=== PATIENT | female | born 1975 | race Hispanic/Latino ===

== ENCOUNTER → 2018-08-04 16:56 | Outpatient (CLI) | payer OTHER, SELFPAY ==
[2018-08-04 18:46] LABS: Alanine Aminotransferase 51 IU/L (9-52); Albumin 4.2 g/dL (3.5-5.0); Albumin Globulin Ratio 1.4 (1.0-2.8); Alkaline Phosphatase 46 U/L (38-126); Aspartate Aminotransferase 31 IU/L (14-36); BUN Creatinine Ratio 11.4 (6-22); Bilirubin Total 0.4 mg/dL (0.2-1.3); Blood Urea Nitrogen 8 mg/dL (7-17); Calcium 9.5 mg/dL (8.4-10.2); Carbon Dioxide 28 mmol/L (22-32); Chloride 101 mmol/L (98-107); Estimated Glomerular Filt Rate > 60.0 mL/min (>60); Globulin 3.1 g/dL (1.7-4.1); Glucose 87 mg/dL (70-100); HEMOLYSIS < 15 (0-50); Potassium 4.4 mmol/L (3.4-5.1); Sodium 139 mmol/L (137-145); Total Protein 7.3 g/dL (6.3-8.2)
[2018-08-04 19:01] LABS: Free T4, Direct Thyroxine 1.81 ng/dL (0.78-2.19)
[2018-08-04 19:02] LABS: Vitamin D 25 Hydroxy (D3) 49.7 ng/mL (30.0-100.0)
[2018-08-04 19:15] LABS: Thyroid Stimulating Hormone 0.36 uIU/mL (0.47-4.68)
[2018-08-06 19:13] LABS: Triiodothyronine T3 Total 106 ng/dL (76-181)
== END ==
PROVIDERS: PCP Internal Medicine; Visit Provider Internal Medicine
DX: M62.831 Muscle spasm of calf (principal); E03.9 Hypothyroidism, unspecified
CPT/HCPCS: 36415; 80053; 82306; 83735; 84439; 84443; 84480

== ENCOUNTER → 2019-03-16 17:20 | Outpatient (CLI) | payer OTHER, SELFPAY ==
--- NOTE | 2019-03-16 17:21 | DI.MG.S_ITS ---
BILATERAL DIGITAL SCREENING MAMMOGRAM 3D/2D WITH CAD: 03/16/2019 CLINICAL: Routine screening. Comparison is made to exams dated: 08/05/2015 mammogram and 07/09/2017 mammogram - [facility]. The tissue of both breasts is heterogeneously dense. This may lower the sensitivity of mammography. Current study was also evaluated with a Computer Aided Detection (CAD) system. There is an oval asymmetry in the right breast posterior depth superior region seen on the mediolateral oblique view only. There also is an irregular asymmetry in the right breast anterior depth inferior region seen on the mediolateral oblique view only. There is an irregular asymmetry in the left breast posterior depth lateral region seen on the craniocaudal view only. No other significant masses or calcifications are seen in either breast. IMPRESSION: INCOMPLETE: NEEDS ADDITIONAL IMAGING EVALUATION The oval asymmetry in the right breast posterior depth superior region seen on the mediolateral oblique view only is indeterminate. Additional views with possible ultrasound are recommended. The irregular asymmetry in the right breast anterior depth inferior region seen on the mediolateral oblique view only is indeterminate. Additional views with possible ultrasound are recommended. The irregular asymmetry in the left breast posterior depth lateral region seen on the craniocaudal view only is indeterminate. Additional views with possible ultrasound are recommended. This exam was interpreted at Station ID: [id number]. NOTE: For mammograms, a report in lay terms will be sent to the patient. Approximately 15% of breast malignancies will not be visualized mammographically. In the management of a palpable breast mass, a negative mammogram must not discourage biopsy of a clinically suspicious lesion. Electronically Signed By: Melo Austin M.D. ecl/:03/17/2019 09:40:30 letter sent: Additional Imaging Needed ACR BI-RADS Category 0: Incomplete 3340F
== END ==
PROVIDERS: PCP Internal Medicine; Visit Provider Internal Medicine
DX: Z12.31 Encounter for screening mammogram for malignant neoplasm of breast (principal)
CPT/HCPCS: 77063; 77067

== ENCOUNTER → 2019-04-04 14:11 | Outpatient (CLI) | payer OTHER, SELFPAY ==
--- NOTE | 2019-04-04 | DI.MG.S_ITS ---
BILATERAL DIGITAL DIAGNOSTIC MAMMOGRAM 3D/2D WITH ADDITIONAL VIEWS: 04/04/2019 CLINICAL: Additional evaluation requested from prior study. Comparison is made to exams dated: [facility] [facility], 07/09/2017 mammogram, and 08/05/2015 mammogram [facility]. The tissue of both breasts is heterogeneously dense. This may lower the sensitivity of mammography. There oval asymmetry in the right breast posterior depth superior region seen on the mediolateral oblique view has a reniform appearance on additional views and is consistent with a normal appearing lymph node. The irregular asymmetry in the right breast anterior depth inferior region seen on the mediolateral oblique view only is not seen in additional views. The irregular asymmetry in the left breast posterior depth lateral region seen on the craniocaudal view only is not seen in additional views. No other significant masses or calcifications are seen in either breast. IMPRESSION: The bilateral asymmetries seen on the screening mammogram likely respresent superimposed fibroglandular tissue and are benign. The asymmetry in the right superior posterior breast is consistent with a normal appearing lymph node and is benign. There is no mammographic evidence of malignancy. A 1 year screening mammogram is recommended. This exam was interpreted at Station ID: [id number]. NOTE: For mammograms, a report in lay terms will be sent to the patient. Approximately 15% of breast malignancies will not be visualized mammographically. In the management of a palpable breast mass, a negative mammogram must not discourage biopsy of a clinically suspicious lesion. Electronically Signed By: Claire Matthews M.D. lk/:04/04/2019 14:59:14 letter sent: Normal Exam ACR BI-RADS Category 2: Benign Finding(s) 3342F
== END ==
PROVIDERS: PCP Internal Medicine; Visit Provider Internal Medicine
DX: R92.8 Other abnormal and inconclusive findings on diagnostic imaging of breast (principal); N64.89 Other specified disorders of breast
CPT/HCPCS: 77066; G0279

== ENCOUNTER → 2019-07-06 17:38 | Outpatient (CLI) | payer BC, SELFPAY | PROVIDERS: PCP Internal Medicine; Visit Provider Physician Assistant | DX: L80 Vitiligo (principal); L81.1 Chloasma; L43.8 Other lichen planus ==

== ENCOUNTER → 2019-07-07 16:07 | Outpatient (CLI) | payer BC, SELFPAY ==
[2019-07-07 17:22] LABS: Add Manual Diff / Slide Review NO; Basophils Absolute Auto 0 /uL (0-100); Basophils Percent Auto 0.6 % (0-2); Eosinophils Absolute Auto 500 /uL (0-450); Eosinophils Percent Auto 6.2 % (2-4); Hemoglobin 14.6 g/dL (12.0-16.0); Lymphocytes Absolute Auto 2300 /uL (1100-4500); Lymphocytes Percent Auto 30.6 % (25-40); Mean Corpuscular Hemoglobin 30.6 PG (26-34); Mean Corpuscular Volume 89.9 fL (80-100); Monocytes Absolute Auto 500 /uL (0-900); Monocytes Percent Auto 6.9 % (3-14); Neutrophils Absolute Auto 4100 /uL (1500-7000); Neutrophils Percent Auto 55.7 % (50-75); Platelet Count 258 X10^3/uL (150-400); Red Blood Cell Count 4.78 X10^6/uL (4.0-5.2); Red Cell Distribution Width 13.5 % (11.6-14.8); White Blood Cell Count 7.4 X10^3/uL (4.5-11.0)
[2019-07-07 17:35] LABS: Alanine Aminotransferase 32 IU/L (<35); Albumin 4.9 g/dL (3.5-5.0); Albumin Globulin Ratio 1.5 (1.0-2.8); Alkaline Phosphatase 59 U/L (38-126); Aspartate Aminotransferase 36 IU/L (14-36); Bilirubin Total 0.7 mg/dL (0.2-1.3); Blood Urea Nitrogen 14 mg/dL (7-17); Calcium 9.6 mg/dL (8.4-10.2); Carbon Dioxide 26 mmol/L (22-32); Chloride 101 mmol/L (98-107); Estimated Glomerular Filt Rate > 60.0 mL/min (>60); Globulin 3.3 g/dL (1.7-4.1); Glucose 88 mg/dL (70-100); HEMOLYSIS < 15 (0-50); Potassium 3.8 mmol/L (3.4-5.1); Sodium 140 mmol/L (137-145); Total Protein 8.2 g/dL (6.3-8.2)
[2019-07-07 18:06] LABS: Thyroid Stimulating Hormone 0.32 uIU/mL (0.47-4.68)
[2019-07-07 18:25] LABS: Vitamin B12 614 pg/mL (239-931)
[2019-07-09 19:43] LABS: DNA (DS) Antibody 2 IU/mL
[2019-07-10 08:56] LABS: ANA Screen, IFA NEGATIVE (NEGATIVE)
[2019-07-11 15:56] LABS: Triiodothyronine T3 Total 101 ng/dL (76-181)
== END ==
PROVIDERS: PCP Internal Medicine; Visit Provider Physician Assistant
DX: L80 Vitiligo (principal); L81.1 Chloasma; L43.8 Other lichen planus
CPT/HCPCS: 36415; 80053; 82607; 84436; 84443; 84480; 85025; 86038; 86225; 86235; 86255

== ENCOUNTER → 2019-11-16 14:27 | Outpatient (CLI) | payer BC, SELFPAY ==
[2019-11-16 15:56] LABS: Free T4, Direct Thyroxine 1.74 ng/dL (0.78-2.19)
[2019-11-16 16:10] LABS: Thyroid Stimulating Hormone 0.15 uIU/mL (0.47-4.68)
[2019-11-17 07:08] LABS: Triiodothyronine T3 Total 75 ng/dL (71-180)
== END ==
PROVIDERS: PCP Internal Medicine; Referring Provider Internal Medicine; Visit Provider Internal Medicine
DX: E03.9 Hypothyroidism, unspecified (principal)
CPT/HCPCS: 36415; 84439; 84443; 84480

== ENCOUNTER → 2020-02-01 07:59 | Outpatient (CLI) | payer OTHER, SELFPAY ==
--- NOTE | 2020-02-01 08:21 | DI.ECHO.S_ITS ---
Version: 1 Study ID: [id number] Name: MALIK MAC Study Date: 02/01/2020, 8: 21 AM : 1975 BP: 122 / 78 mmHg Gender: Female Height: 65 in Age: 44 Years Weight: 156 lb BSA: 1.78 m?? Ordering: JESUS CASEY Referring: JESUS CASEY Clinician: Tenisha Henley Reason For Study: CHEST PAIN History: Summary Statements Normal sinsu rhythm. Normal LV size, wall thickness, wall motion and LV systolic function. EF is 60-65%. Normal chamber sizes. No valvular abnormalities. No prior study available for comparison. Procedure: A two-dimensional transthoracic echocardiogram with color flow and Doppler was performed. The study quality was technically adequate. There is no prior echocardiogram noted for this patient. The patient was in sinus rhythm with heart rates between 60-67 bpm during the exam. Left Ventricle: Diastolic parameters suggest probable normal left ventricular diastolic function and normal filling pressures. The ejection fraction is estimated to be 60-65%. Left ventricular global longitudinal strain average is -19.9%. The left ventricle is normal in size and wall thickness. Right Ventricle: The right ventricle is normal in size and function. Atria: There is no Doppler evidence for an interatrial shunt. Both atria are normal in size. Mitral Valve: There is trace mitral regurgitation. The mitral valve is normal in structure and function. Aortic Valve: No aortic regurgitation is present. There is no aortic valve stenosis. The aortic valve is trileaflet. The aortic valve opens well. Tricuspid Valve: There is mild tricuspid regurgitation. The right ventricular systolic pressure is estimated to be at least 19 mmHg based on an estimated right atrial pressure of 3 mm Hg. The tricuspid valve is normal in structure and function. Pulmonic Valve: There is no pulmonic valvular regurgitation. The pulmonic valve is not well seen, but is grossly normal. Great Vessels: The dimensions of the ascending aorta are normal. The aortic root is normal size. The IVC is of normal diameter and collapses greater than 50% with a sniff. This suggests a low right atrial pressure of 3 mm Hg. Pericardium/ Pleura: There is no pericardial effusion. There is no pleural effusion. 2D and M-Mode Measurements and Calculations LVIDd: 3.9 cm LVOT diam: 1.97 cm LVIDs: 2.8 cm Ao root diam: 3.3 cm IVSd: 0.96 cm asc Aorta Diam: 3.2 cm LVPWd: 0.80 cm Ao Arch Diam (Prox Trans): 2.6 cm LV navarro. diameter/BSA (cm/m^2): 2.22 LV sys. diameter/BSA (cm/m^2): 1.56 EPSS: 0.58 cm RVD1 (basal): 2.9 cm IVC diam: 1.74 cm TAPSE: 2.26 cm LA A4 area: 12.8 cm?? RA area: 12.9 cm?? LA A2 area: 16.4 cm?? RA long axis: 4.3 cm LA length (vol): 4.5 cm RA vol: 32.9 ml LA vol: 39.3 ml RA : 18.5 ml/m?? LA vol index: 22.1 ml/m?? Doppler Measurements and Calculations Ao V2 max: 107.4 cm/sec LVOT Max Jr: 104.7 cm/sec Ao V2 mean: 77.9 cm/sec LV V1 max P.4 mmHg Ao V2 VTI: 23.7 cm LV V1 VTI: 20.1 cm Ao max P.6 mmHg Ao mean P.7 mmHg KIMBERLEE(I,D): 2.6 cm?? KIMBERLEE(V,D): 3.0 cm?? KIMBERLEE indexed to BSA (cm^2/m^2): 1.46 sev ratio: 0.85 MV E max jr: 76.6 cm/sec MV dec time: 0.15 sec MV A max jr: 51.2 cm/sec MV E/A: 1.50 Med Peak E' Jr: 11.0 cm/sec Lat Peak E' Jr: 12.8 cm/sec E/e' average: 6.5 TR max jr: 203.8 cm/sec PA V2 max: 60.5 cm/sec TR max P.6 mmHg PA mean P.77 mmHg Electronically signed by: Kaylynn Alas M.D. 02/02/2020, 6: 33 AM
== END ==
PROVIDERS: PCP Internal Medicine; Referring Provider Internal Medicine; Visit Provider Internal Medicine
DX: I07.1 Rheumatic tricuspid insufficiency (principal); R07.89 Other chest pain; I30.9 Acute pericarditis, unspecified
CPT/HCPCS: 93306

== ENCOUNTER → 2021-01-11 14:12 | Outpatient (CLI) | payer BC, SELFPAY ==
--- NOTE | 2021-01-11 14:13 | DI.MG.S_ITS ---
BILATERAL DIGITAL SCREENING MAMMOGRAM 3D/2D WITH CAD: 01/11/2021 CLINICAL: Routine screening. Comparison is made to exams dated: 04/04/2019 mammogram, 03/16/2019 mammogram - [facility], and 07/09/2017 mammogram - [facility]. The tissue of both breasts is heterogeneously dense. This may lower the sensitivity of mammography. Current study was also evaluated with a Computer Aided Detection (CAD) system. No significant masses, calcifications, or other findings are seen in either breast. There has been no significant interval change. IMPRESSION: NEGATIVE There is no mammographic evidence of malignancy. A 1 year screening mammogram is recommended. This exam was interpreted at Station ID: [id number]. NOTE: For mammograms, a report in lay terms will be sent to the patient. Approximately 15% of breast malignancies will not be visualized mammographically. In the management of a palpable breast mass, a negative mammogram must not discourage biopsy of a clinically suspicious lesion. Electronically Signed By: Aubrey parada/taylor:01/14/2021 08:03:05 letter sent: Normal Exam ACR BI-RADS Category 1: Negative 3341F
== END ==
PROVIDERS: PCP Student in an Organized Health Care Education/Training Program; Referring Provider Student in an Organized Health Care Education/Training Program; Visit Provider Student in an Organized Health Care Education/Training Program
DX: Z12.31 Encounter for screening mammogram for malignant neoplasm of breast (principal)
CPT/HCPCS: 77063; 77067

== ENCOUNTER → 2022-01-13 07:50 | Outpatient (CLI) | payer BC, SELFPAY ==
--- NOTE | 2022-01-13 | DI.MG.S_ITS ---
BILATERAL DIGITAL SCREENING MAMMOGRAM 3D/2D WITH CAD: 01/13/2022 CLINICAL: Routine screening. Comparison is made to exams dated: 01/11/2021 mammogram, 03/16/2019 mammogram - [facility], 07/09/2017 mammogram [facility], and 04/04/2019 mammogram - [facility]. The tissue of both breasts is heterogeneously dense. This may lower the sensitivity of mammography. Current study was also evaluated with a Computer Aided Detection (CAD) system. No significant masses, calcifications, or other findings are seen in either breast. There has been no significant interval change. IMPRESSION: NEGATIVE There is no mammographic evidence of malignancy. A 1 year screening mammogram is recommended. Based on the Tyrer Cuzick model (a risk assessment model) the patient's lifetime risk is 11.2% and her 10 year risk is 2.3%. According to the ACR, ACS, and NCCN guidelines, an annual breast MRI exam along with mammogram is recommended if the patient's lifetime risk is 20% or greater. This exam was interpreted at Station ID: [id number]. NOTE: For mammograms, a report in lay terms will be sent to the patient. Approximately 15% of breast malignancies will not be visualized mammographically. In the management of a palpable breast mass, a negative mammogram must not discourage biopsy of a clinically suspicious lesion. Electronically Signed By: Baron harrison/taylor:01/13/2022 10:10:53 letter sent: Normal Exam ACR BI-RADS Category 1: Negative 3341F
== END ==
PROVIDERS: PCP Family Medicine; Referring Provider Family Medicine; Visit Provider Family Medicine
DX: Z12.31 Encounter for screening mammogram for malignant neoplasm of breast (principal)
CPT/HCPCS: 77063; 77067

== ENCOUNTER 2022-01-29 12:07 | Outpatient (CLI) | payer BC, SELFPAY | END 2022-02-02 14:00 | disposition home or self-care (01) | LOC: PHYS 12:08 | PROVIDERS: PCP Family Medicine; Referring Provider Student in an Organized Health Care Education/Training Program; Visit Provider Student in an Organized Health Care Education/Training Program | DX: M79.604 Pain in right leg (principal) | CPT/HCPCS: 95886; 95909 ==

== ENCOUNTER → 2023-01-14 16:18 | Outpatient (CLI) | payer BC, SELFPAY ==
--- NOTE | 2023-01-14 16:19 | DI.MG.S_ITS ---
BILATERAL DIGITAL SCREENING MAMMOGRAM 3D/2D WITH CAD: 01/14/2023 CLINICAL: Routine screening. Comparison is made to exams dated: 01/13/2022 mammogram, 01/11/2021 mammogram, 03/16/2019 mammogram - [facility], and 07/09/2017 mammogram - [facility]. Both breasts are heterogeneously dense, which may obscure small masses (category c / 51-75% glandular tissue). Current study was also evaluated with a Computer Aided Detection (CAD) system. No significant masses, calcifications, or other findings are seen in either breast. There has been no significant interval change. IMPRESSION: NEGATIVE There is no mammographic evidence of malignancy. A 1 year screening mammogram is recommended. Based on the Tyrer Cuzick model (a risk assessment model) the patient's lifetime risk is 11.3% and her 10 year risk is 2.4%. According to the ACR, ACS, and NCCN guidelines, an annual breast MRI exam along with mammogram is recommended if the patient's lifetime risk is 20% or greater. This exam was interpreted at Station ID: [id number]. NOTE: For mammograms, a report in lay terms will be sent to the patient. Approximately 15% of breast malignancies will not be visualized mammographically. In the management of a palpable breast mass, a negative mammogram must not discourage biopsy of a clinically suspicious lesion. Electronically Signed By: Baron harrison/taylor:01/15/2023 10:12:59 letter sent: Normal Exam ACR BI-RADS Category 1: Negative 3341F
== END ==
PROVIDERS: PCP Family Medicine; Referring Provider Registered Nurse; Visit Provider Registered Nurse
DX: Z12.31 Encounter for screening mammogram for malignant neoplasm of breast (principal)
CPT/HCPCS: 77063; 77067

== ENCOUNTER → 2023-02-04 07:51 | Outpatient (CLI) | payer BC, SELFPAY ==
--- NOTE | 2023-02-04 | DI.NM.S_ITS ---
PROCEDURE: NM EXERCISE TREADMILL NON NUC COMPARISON: None. INDICATIONS: Syncope and collapse FINDINGS: The patient exercised for 10 minutes and 41 seconds reaching 106% of maximum predicted heart rate. Appropriate BP response to exercise. No angina, no ST changes, and no ectopy during exercise or recovery. Good exercise tolerance (12.8METs, SALLY -32%). IMPRESSION: Low risk, normal treadmill ECG only stress test with good exercise tolerance. Dictated by: Muna Gomez MD on 02/05/2023 at 13:04 Approved by: Muna Gomez MD on 02/05/2023 at 13:06
--- NOTE | 2023-02-04 | DI.ECHO.S_ITS ---
[facility] +---------+ : : [address] : [place] [address] : : : : [id number] : : : : Phone: [phone]+ Echocardiogram Report + + :Name: MALIK MAC Study Date: 02/04/2023 Height: 65 in : :[facility] ReadingLocation: Weight: 150 lb : : Gender: Female BSA: 1.8 m2 : :: 1975 Age: 47 yrs BP: 113/81 mmHg: :Reason For Study: SYNCOPE AND COLLAPSE : :Ordering Physician: ANU, : :TEJAS Performed By: Tenisha Henley : :Referring: TEJAS BRENNAN : + + Interpretation Summary The ejection fraction is estimated to be 60-65%. Diastolic parameters suggest probable normal left ventricular diastolic function and normal filling pressures. The right ventricle is normal in size and function. No significant valvular abnormalities. Pulmonary artery pressures cannot be estimated because of the lack of a measurable TR jet velocity. Procedure: A two-dimensional transthoracic echocardiogram with color flow and Doppler was performed. The study quality was technically adequate. Comparison is made with the echocardiogram of 02/01/2020. The patient was in sinus bradycardia with heart rates between 54-67 bpm during the exam. Left Ventricle: The left ventricle is normal in size and wall thickness. The ejection fraction is estimated to be 60-65%. Diastolic parameters suggest probable normal left ventricular diastolic function and normal filling pressures. Right Ventricle: The right ventricle is normal in size and function. Atria: The left atrial size is normal. Right atrial size is normal. There is no Doppler evidence for an interatrial shunt. Mitral Valve: The mitral valve is normal in structure and function. There is trace mitral regurgitation. Aortic Valve: The aortic valve is not well visualized. There is no aortic valve stenosis. No aortic regurgitation is present. Tricuspid Valve: The tricuspid valve is normal in structure and function. There is trace tricuspid regurgitation. Pulmonary artery pressures cannot be estimated because of the lack of a measurable TR jet velocity. Pulmonic Valve: The pulmonic valve leaflets are thin and pliable; valve motion is normal. There is trace pulmonic regurgitation. Great Vessels: The aortic root is normal size. The ascending aorta could not be visualized. The IVC is of normal diameter and collapses greater than 50% with a sniff. This suggests a low right atrial pressure of 3 mm Hg. Pericardium/ Pleura There is no pericardial effusion. There is no pleural effusion. MMode/2D Measurements & Calculations LVIDd: 4.5 cm LVOT diam: 1.9 cm LVIDs: 2.9 cm Ao root diam: 3.2 cm FS: 35.2 % Ao Arch Diam (Prox Trans): 2.5 cm EPSS: 0.26 cm IVSd: 0.79 cm LVPWd: 0.69 cm LV navarro. diameter/BSA (cm/m^2): 2.6 LV sys. diameter/BSA (cm/m^2): 1.7 LA A2 area: 16.2 cm2 RA long axis: 4.4 cm LA A4 area: 11.9 cm2 RA area: 11.9 cm2 LA length (vol): 4.9 cm RA vol: 27.2 ml LA vol: 33.6 ml RA : 15.5 ml/m2 LA vol index: 19.2 ml/m2 IVC diam: 1.8 cm RVD1 (basal): 3.3 cm RVD2 (mid): 2.3 cm TAPSE: 2.4 cm Doppler Measurements & Calculations Ao V2 max: 127.0 cm/sec LVOT Max Jr: 81.9 cm/sec Ao V2 mean: 89.8 cm/sec LV V1 max P.7 mmHg Ao max P.5 mmHg LV V1 VTI: 17.7 cm Ao mean P.6 mmHg KIMBERLEE(I,D): 1.9 cm2 Ao V2 VTI: 26.7 cm KIMBERLEE(V,D): 1.8 cm2 sev ratio: 0.67 KIMBERLEE indexed to BSA (cm^2/m^2): 1.1 MV E max jr: 80.9 cm/sec PA V2 max: 73.9 cm/sec MV A max jr: 44.7 cm/sec PA V2 mean: 57.4 cm/sec MV E/A: 1.8 PA mean P.4 mmHg Med Peak E' Jr: 10.8 cm/sec PA pr(Accel): 25.9 mmHg E/E' med: 7.5 Lat Peak E' Jr: 14.0 cm/sec E/E' lat: 5.8 E/e' average: 6.6 MV dec time: 0.27 sec SV(LVOT): 49.9 ml Reading Physician:06:51 PM
== END ==
PROVIDERS: PCP Registered Nurse; Referring Provider Registered Nurse; Visit Provider Registered Nurse
DX: R55 Syncope and collapse (principal)
CPT/HCPCS: 93017; 93306

== ENCOUNTER → 2024-01-18 16:40 | Outpatient (CLI) | payer BC, SELFPAY ==
--- NOTE | 2024-01-18 | DI.US.S_ITS ---
PROCEDURE: US PELVIC COMPLETE INDICATIONS: IUD STRINGS NOT VISUALIZED TECHNIQUE: Real-time scanning was performed of the pelvic organs, with image documentation. Additional endovaginal scanning was necessary due to incomplete visualization of the adnexal and endometrial structures by transabdominal scanning. COMPARISON: [facility], US, US PELVIC COMPLETE, 04/05/2020, 15:36. FINDINGS: Uterus: 9.9 x 4.1 x 5.9 cm. Endometrium is 3-4 mm. IUD is within the endometrial body Small right posterior intramural measures 8 mm Ovaries: Right ovary measures 12 cc. Small follicular cysts are seen measuring up to 2 and 1 5 cm. Nonenlarged left ovary. Other: No pathologic free fluid. IMPRESSION: IUD is seen in the endometrial body small intramural posterior fibroid Right ovarian follicular cysts. Dictated by: Hunter Vergara M.D. on 01/19/2024 at 9:33 Approved by: Hutner Vergara M.D. on 01/19/2024 at 9:36
== END ==
PROVIDERS: PCP Registered Nurse; Referring Provider Registered Nurse; Visit Provider Registered Nurse
DX: D25.1 Intramural leiomyoma of uterus (principal); N83.01 Follicular cyst of right ovary; Z97.5 Presence of (intrauterine) contraceptive device
CPT/HCPCS: 76856

== ENCOUNTER → 2024-01-21 17:41 | Outpatient (CLI) | payer BC, SELFPAY ==
--- NOTE | 2024-01-21 17:41 | DI.MG.S_ITS ---
BILATERAL DIGITAL SCREENING MAMMOGRAM 3D/2D WITH CAD: 01/21/2024 CLINICAL: Routine screening. Comparison is made to exams dated: 01/14/2023 mammogram, 01/13/2022 mammogram, and 01/11/2021 mammogram - [facility]. Both breasts are heterogeneously dense, which may obscure small masses (category c / 51-75% glandular tissue). Current study was also evaluated with a Computer Aided Detection (CAD) system. No significant masses, calcifications, or other findings are seen in either breast. There has been no significant interval change. IMPRESSION: NEGATIVE There is no mammographic evidence of malignancy. A 1 year screening mammogram is recommended. Based on the Tyrer Cuzick model (a risk assessment model) the patient's lifetime risk is 11.3% and her 10 year risk is 2.5%. According to the ACR, ACS, and NCCN guidelines, an annual breast MRI exam along with mammogram is recommended if the patient's lifetime risk is 20% or greater. This exam was interpreted at Station ID: [id number]. NOTE: For mammograms, a report in lay terms will be sent to the patient. Approximately 15% of breast malignancies will not be visualized mammographically. In the management of a palpable breast mass, a negative mammogram must not discourage biopsy of a clinically suspicious lesion. Electronically Signed By: Aubrey parada/taylor:01/24/2024 07:05:00 letter sent: Normal Exam ACR BI-RADS Category 1: Negative 3341F
== END ==
LOC: MAMMO 17:41
PROVIDERS: PCP Registered Nurse; Referring Provider Registered Nurse; Visit Provider Registered Nurse
DX: Z12.31 Encounter for screening mammogram for malignant neoplasm of breast (principal); R92.333 Mammographic heterogeneous density, bilateral breasts
CPT/HCPCS: 77063; 77067

== ENCOUNTER 2024-06-01 12:14 | Emergency (ER) | payer BC, SELFPAY ==
[2024-06-01 12:15] VITALS: BP 143/81; PULSE 64; RESP 16; TEMP 36.6; O2SAT 99; BMI 26.5
--- NOTE | 2024-06-01 12:31 | DI.RAD.S_ITS ---
PROCEDURE: XR FINGER LT MIN 2V INDICATIONS: middle finger in car door TECHNIQUE: AP hand, 2 views of the 3rd finger(s) acquired. COMPARISON: None. FINDINGS: Bones: No fractures or dislocations. No suspicious bony lesions. Soft tissues: No suspicious soft tissue calcifications. IMPRESSION: No acute bony abnormality. Dictated by: Peyman Cifuentes M.D. on 06/01/2024 at 13:17 Approved by: Peyman Cifuentes M.D. on 06/01/2024 at 13:18
[2024-06-01] MEDS: IBUPROFEN 400 MG TABLET PO (12:47)
[2024-06-01] MEDS: ACETAMINOPHEN 325 MG TABLET PO (12:49)
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
[2024-06-01] MEDS: BACITRACIN OINT 0.9 GM PCKT 1 APPLIC TOP (13:54)
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
[2024-06-01] MEDS: cephALEXin 250 MG CAPSULE 500 MG PO (14:16)
[2024-06-01 14:27] VITALS: BP 118/80; PULSE 60; RESP 18; O2SAT 100
== END 2024-06-01 14:29 | disposition home or self-care (01) ==
PROVIDERS: Emergency Provider Physician Assistant; PCP Registered Nurse
DX: S61.313A Laceration without foreign body of left middle finger with damage to nail, initial encounter (principal); R55 Syncope and collapse; S60.10XA Contusion of unspecified finger with damage to nail, initial encounter; W23.0XXA Caught, crushed, jammed, or pinched between moving objects, initial encounter
CPT/HCPCS: 11730; 12001; 73140; 99283; 99284

== ENCOUNTER 2024-08-29 07:43 | Day surgery (SDC) | payer BC, SELFPAY ==
[2024-08-29 08:12] VITALS: BP 110/79; PULSE 65; RESP 14; TEMP 36.9; O2SAT 98
[2024-08-29] MEDS: LACTATED RINGERS 1,000 ML 42 ML IV (08:25)
--- NOTE | 2024-08-29 08:28 | PM.HP.IH.1 ---
History of Present Illness History of Present Illness Date Patient Seen: 08/29/24 Time Patient Seen: 08:28 [place] [facility] [place]: 48-year-old female, maternal aunt with a history of colon cancer, in her usual state of health presents for screening colonoscopy. [facility] Medical History (Updated 08/29/24 @ 08:29 by Ethan Rogers MD) Colon stricture Surgical History Previous section H/O thyroidectomy Social History Smoking Status: Never smoker alcohol intake: current Meds Home Medications and Allergies Home Medications Medication Instructions Recorded Confirmed Type levothyroxine 125 mcg tablet 125 mcg PO DAILY 02/13/20 08/29/24 History Allergies Allergy/AdvReac Type Severity Reaction Status Date / Time Sulfa (Sulfonamide AdvReac Rash Verified 08/29/24 07:57 Antibiotics) Review of Systems Review of Systems ROS: Yes All systems reviewed with the patient and are negative except as otherwise documented Exam Vital Signs (past 8 hours): - 08/29/24 08:12 Temperature 98.5 F Pulse Rate 65 Respiratory Rate 14 Blood Pressure 110/79 Pulse Oximetry 98 Oxygen Delivery Method Room Air Oxygen Delivery Method Room Air Narrative Exam Narrative: Gen: NAD, sitting comfortably in bed, appears well HEENT: Sclera are anicteric, head is normocephalic and atraumatic, trachea is midline. CV: RRR, no JVD Resp: clear to auscultation bilaterally, equal chest wall movement bilaterally Abd: soft, nontender, normoactive bowel sounds Ext: no edema, full range of motion Neuro: Cranial nerves II-XII grossly intact, no focal deficits Skin: No erythema or ecchymosis Assessment & Plan Assessment and plan (1) Colon stricture: Status: Acute Assessment & Plan narrative: Patient presents for colonoscopy Risks, benefits, alternatives to colonoscopy explained, including but not limited to bowel perforation or other serious complication requiring surgery at less than 1 in 5000 colonoscopies, abdominal pain, cramping or bleeding and less than 1% of colonoscopies, and the chances that we find a diagnosis that would require further intervention of about 2%. Patient agrees to proceed. Time-Based Coding :: [TOTAL MINUTES] spent with patient and on the chart (including review of chart, obtaining history, exam, reviewing outside data, placing orders, documenting exam and treatment plan, and counseling patient) on [DATE]. PROFEE Airbrush Artist Technical Document charge(s): No
--- NOTE | 2024-08-29 08:48 | P.OP.COLON_ITS ---
Operative Date/Time/Diagnoses Date of procedure: 08/29/24 Time of procedure: 08:49 Pre-op diagnosis: Colon screening Post-op diagnosis: same Procedure & Clinicians Study performed: Colonoscopy Same procedure as scheduled: Yes Indications: Colon screening Surgeon: Ethan Rogers Procedure Notes SCOAP/Timeout: Performed Procedure in detail: Time-out was performed. Mac was induced. Patient was placed in left lateral d ecubitus position. The perineum was inspected without any gross abnormality. Lubricated pediatric colonoscope was inserted and advanced to the cecum. The terminal ileum was intubated. The colonoscope was withdrawn slowly inspecting the circumference of the colon. Very small polyps may have been missed, prep quality was adequate. Retroflexed view of the rectum showed small, non prolapsed nonbleeding internal hemorrhoids. The scope was withdrawn the patient was taken to PACU in good condition. Scope withdrawal time: 6 Findings: internal hemorrhoids Specimen(s): none sent Complications: none Impression: Normal colon Post-procedure Recommendations: Colonoscopy in 10 years Follow up: as needed Disposition: PACU
[2024-08-29 08:50] VITALS: BP 99/67; PULSE 60; RESP 14; TEMP 36.6; O2SAT 99
[2024-08-29 08:55] VITALS: BP 101/66; PULSE 69; RESP 16; O2SAT 100
[2024-08-29 09:00] VITALS: BP 101/71; PULSE 70; RESP 14; TEMP 36.6; O2SAT 98
[2024-08-29 09:04] VITALS: BP 106/75; PULSE 64; RESP 14; O2SAT 99
== END 2024-08-29 09:30 | disposition home or self-care (01) ==
PROVIDERS: PCP Registered Nurse; Referring Provider Surgery; Visit Provider Surgery
PROC: 0DJD8ZZ Inspection of Lower Intestinal Tract, Via Natural or Artificial Opening Endoscopic (ICD-10-PCS; CPT 45378; principal; 2024-08-29 08:45)
DX: Z12.11 Encounter for screening for malignant neoplasm of colon (principal); K64.8 Other hemorrhoids
CPT/HCPCS: 45378; J2704